=== PATIENT | male | born 1955 | race Caucasian/White ===

== ENCOUNTER 2024-03-03 19:48 | Inpatient (IN) | payer MEDICARE, OTHER, SELFPAY ==
[2024-03-03] VITALS (9 sets, daily range): BP systolic 112–150; BP diastolic 57–94; BMI 30.6; BMI 30.9
[2024-03-03] MEDS: ZITHROMAX 500 MG PO (15:10)
[2024-03-03] MEDS: DELTASONE 50 MG PO (15:10)
--- NOTE | 2024-03-03 15:10 | ED.GENMED ---
History of Present Illness
General
Chief Complaint: Cough
Source: patient and significant other
Exam Limitations: none
Time Seen by Provider: 03/03/24 14:42
Nursing documentation reviewed up to this point in time: agreed with
Travel History
Have you had any contact with someone who has COVID-19?: No
Do you have any symptoms of coronavirus? Fever > 100 degrees, chills, cough, shortness of breath, sore throat, loss of taste or smell, muscle aches, or headache?: No
History of Present Illness
History of Present Illness:
Patient is a 69-year-old male with past medical history of COPD on Symbicort, diabetes on metformin, who presents emergency department to come by his for evaluation of a worsening cough over the past 3 days. Patient reports that 4 days ago, he
was seen at an outside emergency department following a mechanical fall. At that time, the patient sustained head injury and had a CT scan of his head which was reportedly negative. Patient had a laceration to his right eyebrow which was repaired.
Patient reports that the following morning, he woke up with a cough. Patient reports that cough has been productive of clear mucus. Patient reports some mild occasional shortness of breath. Patient denies chest pain, abdominal pain, nausea,
vomiting. Patient denies any hemoptysis or lower extremity edema. Patient denies he is never been hospitalized for his COPD. Patient reports that he cannot recall the last time he was on steroids. He reports that he does have a nebulizer machine
at home but has not had to use it and has not used it since he started coughing. Patient denies any known sick contacts or travel. Patient denies any fevers or chills.
Past History
Past History
ED Past Medical History: COPD, NIDDM and Other (hep C, kidney stones)
ED Past Surgical History: Appendectomy, Cholecystectomy and Urological (cystoscopy)
Social History
Tobacco: Other (cigar smoker, former cigarette smoker)
Personal:
Living: other
Employment: Retired
Family History
Family History: Other
Review of Systems
Review of Systems
Allergies reviewed?: Yes
All Other Systems: ROS reviewed and negative except as documented in HPI and ROS
Constitutional: Reports no symptoms
EENT: Reports no symptoms
Respiratory: Reports cough and trouble breathing; Denies hemoptysis
Cardiac: Reports no symptoms
ABD/GI: Reports no symptoms
: Reports no symptoms
Musculoskeletal: Reports no symptoms
Skin: Reports no symptoms
Neurological: Reports no symptoms
Endocrine: Reports no symptoms
Hematologic/Lymphatic: Reports no symptoms
Psychiatric: Reports no symptoms
Phy Exam
General Physical Exam
General Presentation: well appearing and no apparent distress
General Skin: warm and dry
General Habitus: normal
General Mental: alert
General Hydration: appears well hydrated
ENT Exam
ENT Exam: EOMI, pharynx normal, neck supple and normocephalic
Eye Exam
Eye Exam: PERRL, cornea clear and conjunctiva normal
Cardiovascular Exam
Cardiovascular Exam: regular rate/rhythm, no edema, no murmur and normal peripheral pulses
Pulmonary Exam
Pulmonary Exam: no respiratory distress, no rales, no crackles, no rhonchi and no stridor
Cough: coarse cough
Breath Sounds: Wheeze: generalized
Gastrointestinal Exam
Gastrointestinal Exam: normal bowel sounds, non tender, soft, no organomegaly, no pulsatile mass and non distended
Neurological Exam
Neurological Exam: alert, oriented x3, no motor deficits and speech normal
Musculoskeletal Exam
Musculoskeletal Exam: full ROM and no edema
Skin Exam
Skin Exam: normal color, warm/dry, no rash and no petechia
Psychiatric Exam
Psychiatric Exam: normal mood/affect
Course
Orders/Labs/Results
Orders:
Orders
03/03/24 13:07
Chest [CR Chest - 2 Views ] Urgent
Comment:
Reason For Exam: worsening cough
03/03/24 15:03
Azithromycin [Zithromax] 500 mg PO NOW STA
Prednisone [Deltasone] 50 mg PO NOW STA
03/03/24 15:05
Ipratropium/Albuterol Sulfate [Duoneb] 3 ml INH R Q1HPRN PRN
03/03/24 16:30
Ipratropium/Albuterol Sulfate [Duoneb] 3 ml INH R NOW STA
03/03/24 16:33
COVID-19 Antigen Urgent
Source: Nasal Swab
Influenza A+B Rapid Molecular Urgent
YASMINE Source: Nasal Swab
Specimen Description:
03/03/24 18:25
Basic Metabolic Panel Urgent
Complete Blood Count/With Diff Urgent
Abnormal Lab Results
03/03/24
18:25
WBC 4.6 L 10^3/uL
(4.8-10.8)
Absolute Lymphs (auto) 0.4 L 10^3/uL
(1.2-3.4)
Neutrophils % 83.4 H %
(42.2-75.2)
Lymphocytes % 9.3 L %
(20.5-51.1)
03/03/24 18:25
Vital Signs
Initial and Last Documented VS:
Initial Vital Signs
Temp Pulse Resp BP Pulse Ox
99.8 F 96 18 122/79 94
03/03/24 13:04 03/03/24 13:04 03/03/24 13:04 03/03/24 13:04 03/03/24 13:04
Last Documented Vital Signs
Temp Pulse Resp BP Pulse Ox
99.8 F 95 19 119/57 93
03/03/24 13:04 03/03/24 18:30 03/03/24 18:30 03/03/24 18:00 03/03/24 18:30
*Critical Care Note
Total Time (30-74mins, 75-104mins- exclusive of procedures): Not Applicable
Update Note
Update Note:
Patient is a 69-year-old male with past medical history of COPD who presents to the emergency department for evaluation of worsening cough over the past 2 days. On an unrelated note, the patient did sustain a mechanical fall 3 days ago and was seen
at an outside emergency department and had a negative workup although he had a laceration sutured over his right eyebrow. Patient denies fevers or chills. Patient does endorse some intermittent shortness of breath, denies chest pain, abdominal
pain, vomiting, lower extremity edema. On arrival, patient vital signs are stable, he is afebrile. On exam, patient is well-appearing and in no acute distress although he does have bouts of severe bronchospastic cough with diffuse wheezing
throughout all lung gaspar. Patient had a chest x-ray while he was in the waiting room which demonstrates no acute disease process, no evidence of pneumonia. Initial plan was to treat the patient for a COPD exacerbation with oral steroids,
DuoNebs, oral antibiotics. On reevaluation, patient reports no significant improvement in his symptoms although his wheeze seems to have improved. Patient given an additional DuoNeb but still with frequent bronchospastic cough. Patient's
oxygenation also noted to drop as low as 86% during some of these episodes. A viral swab was sent and the patient is positive for influenza A. At this time, feel the patient requires admission for continued treatment of his COPD exacerbation
likely triggered by his influenza infection. Plan was discussed with the patient and his who expressed understanding of the plan and agreed. Patient signed out to the hospitalist without complication.
ED Attending Note
-
Portions of this chart may have been created with voice recognition software.� Occasional wrong word or��sound alike� substitutions may have occurred due to the inherent limitations of voice recognition software.
Discharge Plan
Departure
Patient Disposition: Admit
Date of Disposition: 03/03/24
Time of Disposition: 18:15
Presentation/result/management discussed w/ accepting MD/DO: Hospitalist
Patient with high blood pressure during this ER visit?: No
Condition: Good
Covid-19: Negative COVID-19
Discharge Problem:
COPD exacerbation, Influenza A
Prescriptions:
No Action
multivitamin with folic acid [Tab-A-Ewa] 1 TABLET tablet
1 tab PO DAILY
metformin 500 mg tablet extended release 24 hr
1,000 mg PO BID
lisinopril 2.5 mg tablet
2.5 mg PO DAILY
rosuvastatin 20 mg tablet
20 mg PO DAILY
budesonide-formoterol [Breyna] 160-4.5 mcg/actuation HFA aerosol inhaler
2 puff INHALATION R BID
Referrals:
Shannan Winkler CRNP [Family Provider] -
Interventions
Interventions:
*Risk Screen - Suicide Last Done: 03/03/24 13:04
*General Assessment Last Done: 03/03/24 13:04
*Neglect/Abuse Screening Last Done: 03/03/24 13:04
ED- Fall Risk Assessment Last Done: 03/03/24 14:29
*ED COVID-19 Vaccine History Last Done: 03/03/24 14:29
ED- Pulmonary Assessment Last Done: 03/03/24 14:29
Discharge Date and Time
Print Language: CZECH
[2024-03-03] MEDS: DUONEB 3 ML INH ×3 (15:22→21:57)
[2024-03-03 16:58] LABS: COVID-19 Antigen Negative (Negative)
[2024-03-03 18:35] LABS: % Basophils 1.1 % (0-2); % Eosinophils 0.6 % (0-6); % Immature Granulocytes 0.2 % (0-0.5); % Lymphocytes 9.3 % (20.5-51.1); % Monocytes 5.4 % (1.7-9.3); % Neutrophils 83.4 % (42.2-75.2); Absolute Basophils 0.1 10^3/uL (0-0.2); Absolute Lymphocytes 0.4 10^3/uL (1.2-3.4); Absolute Monocytes 0.3 10^3/uL (0.1-0.6); Absolute Neutrophils 3.9 10^3/uL (1.4-6.5); Hematocrit 40.3 % (39.0-52.0); Mean Corp Hgb Conc. 34.7 g/dL (33.0-37.0); Mean Corpuscular Hgb 29.6 pg (27.0-31.0); Mean Corpuscular Volume 85.2 fL (80.0-94.0); Mean Platelet Volume 9.1 fL (7.4-10.4); Nucleated Red Blood Cells % 0 % (-); Platelet Count 184 10^3/uL (130-400); Red Blood Cell Count 4.73 10^6/uL (4.70-6.10); Red Cell Dist. Width 12.8 % (11.5-14.5); White Blood Cell Count 4.6 10^3/uL (4.8-10.8)
[2024-03-03 18:54] LABS: Blood Urea Nitrogen 16 mg/dl (9-20); Calcium 8.7 mg/dl (8.4-10.2); Carbon Dioxide 26 mmol/L (22-30); Chloride 103 mmol/L (98-107); Estimated Creatinine Clearance 93 ml/min; Glucose 260 mg/dl (70-99); Potassium 4.2 mmol/L (3.5-5.1); Sodium 137 mmol/L (135-145); eGFR > 60.00
--- NOTE | 2024-03-03 18:54 | HPS.HSE ---
Family Physician
-
Family Physician: Shannan Winkler
Chief Complaint
-
Cough
History of Present Illness
The patient is a 69 year-old male with past medical history of COPD on Symbicort and diabetes on metformin, who presents to the ED due to worsening cough, productive clear sputum, and dyspnea. Seen at outside ED 4 days ago after a mechanical fall,
with negative head CT/negative spine x-rays/laceration right eyebrow that was repaired at that time. No Fever, no CP, no abdominal pain, no n/v, no hemoptysis. No recent travel, no known sick contacts, though he mentions he shoots pool several times
a week with a group. WBC 4.6. O2 drops to 86% during coughing spells. Influenza A positive.
ED txt:
Zithromax, Prednisone 50 mg, Duo-Neb
Medical History
Past Medical History
Past Medical History: Reports COPD, NIDDM and Other (Hepatitis C, kidney stones)
Past Surgical History: Reports Appendectomy, Cholecystectomy and Other (Cystoscopy)
Social History
Tobacco: Other (cigars)
Personal:
Family History
Family History: Not pertinent
Allergies / Home Medications
Allergies reflects when Allergies were last updated in [facility].
Home Medications with original date entered in [facility]
Allergy/Medication List:
Allergies
Allergy/AdvReac Type Severity Reaction Status Date / Time
No Known Allergies Allergy Verified 03/13/23 14:25
Home Medications
multivitamin with folic acid 400 mcg tablet (Tab-A-Ewa) 1 tab PO DAILY Supplement 06/01/16
budesonide-formoterol HFA 160 mcg-4.5 mcg/actuation aerosol inhaler (Breyna) 2 puff inhalation R BID 03/03/24
lisinopril 2.5 mg tablet 2.5 mg PO DAILY 03/03/24
metformin 500 mg tablet,extended release 24 hr 1,000 mg PO BID 03/03/24
rosuvastatin 20 mg tablet 20 mg PO DAILY 03/03/24
Review of Systems
-
A 12 point ROS was completed and negative except as noted: Yes
Physical Exam
Vital Signs
Vital Signs
Temp Pulse Resp BP Pulse Ox
99.8 F 95 19 119/57 93
03/03/24 13:04 03/03/24 18:30 03/03/24 18:30 03/03/24 18:00 03/03/24 18:30
Physical Exam
General: Well Developed, Well Nourished, No Apparent Distress and Other (coughing with lung exam)
HEENT: NormoCephalic, Anicteric and Moist mucous membranes
Respiratory: Wheezes (RLL expiratory )
Cardiac: S1/S2 and Regular Rhythm
GI: Soft, Non Tender and Non Distended
Musculoskeletal: No Clubbing, No Cyanosis and No Edema
Skin: Warm and Dry
Neuro: AO x 3, No Motor Deficits and Nonfocal/grossly intact
Psych: Calm
Laboratory Results
-
03/03/24 18:25
Data Reviewed
-
Diagnostic Radiology: Image Personally Visualized and interpreted and Report Reviewed by me (CXR no acute pulmonary process)
Impression/Plan
-
IMPRESSION:
The patient is a 69 year-old male with past medical history of COPD on Symbicort and diabetes on metformin, who presents to the ED due to worsening cough, productive clear sputum, and dyspnea. Seen at outside ED 4 days ago after a mechanical fall,
with negative head CT/negative spine x-rays/laceration right eyebrow that was repaired at that time.
WBC 4.6. O2 drops to 86% during coughing spells. Influenza A positive.
ED txt:
Zithromax, Prednisone 50 mg, Duo-Neb
# Influenza A viral syndrome associated with acute hypoxic respiratory failure (not on home oxygen), requiring 2L here due to hypoxia 86% that was persistent despite ED treatment
#COPD exacerbation
-IV Azithromycin daily for now
-Duo-Nebs scheduled and prn
-Prednisone 40 mg daily and wean
-O2 per nasal cannula with weaning parameters
-Robitussin with codeine once now and prn cough
-Tamiflu 75 mg PO BID
#NIDDM
-cont Metformin
-check HgA1C
-SSI
-JARAD-I
#HLD
-rosuvastatin
DVT proph Lovenox
Full Code
[2024-03-03] MEDS: TAMIFLU 75 MG PO (19:39)
[2024-03-03] MEDS: ROBITUSSIN AC 10 ML PO ×2 (19:39→22:26)
--- NOTE | 2024-03-03 21:00 | PTCARENOTE ---
Received patient from ED. Patient AAOx3, ambulated to the bedside with minimal assist. Patient on 2L NC POX 94. Lungs decreased, HAYS, heart rate reg, no edema, positive pulses. Recent fall with laceration over right eyebrow with 11 stitches and
bruised occipital socket and bruised right thumb. Patient verbalized an understanding to ring for all transfers. VSS. Bed alarm placed for safety. Patient oriented to the unit. Call matos in reach.
[2024-03-03] MEDS: NSS 1000 IV (21:36)
[2024-03-03 21:42] LABS: Glucose - Point of Care 295 mg/dl (70-99)
[2024-03-03] MEDS: GLUCOPHAGE XR EXTENDED RELEASE 1000 MG PO (21:42)
[2024-03-03] MEDS: SYMBICORT 160/4.5 MCG INHALER 2 PUFF INH (21:57)
[2024-03-04 00:31] VITALS: BP 112/63
[2024-03-04] MEDS: ROBITUSSIN AC 10 ML PO ×4 (04:27→20:17)
[2024-03-04 07:07] LABS: Hematocrit 40.8 % (39.0-52.0); Hemoglobin 13.6 g/dL (13.0-18.0); Mean Corp Hgb Conc. 33.3 g/dL (33.0-37.0); Mean Corpuscular Hgb 29.8 pg (27.0-31.0); Mean Corpuscular Volume 89.3 fL (80.0-94.0); Mean Platelet Volume 9.3 fL (7.4-10.4); Platelet Count 177 10^3/uL (130-400); Red Blood Cell Count 4.57 10^6/uL (4.70-6.10); Red Cell Dist. Width 12.7 % (11.5-14.5); White Blood Cell Count 5.4 10^3/uL (4.8-10.8)
[2024-03-04 07:22] LABS: Glucose - Point of Care 107 mg/dl (70-99)
[2024-03-04] MEDS: DUONEB 3 ML INH ×4 (07:24→19:21)
[2024-03-04] MEDS: SYMBICORT 160/4.5 MCG INHALER 2 PUFF INH ×2 (07:25→19:21)
[2024-03-04] MEDS: NOVOLOG FLEXPEN-LOW RESISTANCE SC (07:26)
[2024-03-04 07:32] LABS: Blood Urea Nitrogen 14 mg/dl (9-20); Calcium 8.6 mg/dl (8.4-10.2); Carbon Dioxide 31 mmol/L (22-30); Chloride 107 mmol/L (98-107); Estimated Creatinine Clearance 109 ml/min; Glucose 120 mg/dl (70-99); Potassium 5.9 mmol/L (3.5-5.1); Sodium 142 mmol/L (135-145); eGFR > 60.00
[2024-03-04 07:45] VITALS: BP 118/71
[2024-03-04] MEDS: GLUCOPHAGE XR EXTENDED RELEASE 1000 MG PO ×2 (08:08→20:11)
[2024-03-04] MEDS: TAMIFLU 75 MG PO ×2 (08:08→20:10)
[2024-03-04] MEDS: CRESTOR 20 MG PO (08:09)
[2024-03-04] MEDS: DELTASONE 40 MG PO (08:09)
[2024-03-04] MEDS: ZESTRIL 2.5 MG PO (08:09)
[2024-03-04 08:57] LABS: Absolute Neutrophils -Man Diff 3.1 10^3/uL (1.4-6.5); Band Neutrophils 4 % (0-3); Lymphocytes 27 % (20-51); Monocytes 14 % (2-9); Segmented Neutrophils 55 % (42-75)
[2024-03-04 09:04] LABS: Normal RBC Morphology Yes; Platelets Checked YES
[2024-03-04 09:05] LABS: Total Cells Counted 100
--- NOTE | 2024-03-04 09:38 | W.PN.HOSP.TC ---
Today's Communication/Plan
-
.
Assessment / Plan
Assessment / Plan
Physical Exam
General: Well Developed, Well Nourished, No Apparent Distress.
HEENT: Normocephalic, Anicteric and Moist mucous membranes
Respiratory: B/L rhonchi
Cardiac: S1/S2
GI: Soft, Non Tender and Non Distended
Musculoskeletal: No Clubbing, No Cyanosis and No Edema
Skin: Warm and Dry
Neuro: AO x 3, No Motor Deficits and Nonfocal/grossly intact
Psych: Calm, pleasant
69 year-old male presented to the ED due to worsening cough, productive clear sputum, and dyspnea. Seen at outside ED 4 days ago after a mechanical fall, with negative head CT/negative spine x-rays/laceration right eyebrow that was repaired at that
time.
# Acute hypoxic respiratory failure with hypoxia, distress and sob
Known COPD, sees Dr Alfredo.
Resolving
Wean off O2 as tolerated.
# Influenza A viral bronchitis
-IV Azithromycin daily for now
-Duo-Nebs scheduled and prn
-Prednisone 40 mg daily and wean
-O2 per nasal cannula with weaning parameters
-Robitussin with codeine once now and prn cough
-Tamiflu 75 mg PO BID
-Appreciate pulmonary help
# Hyperkalemia,
Hold Lisinopril
Give one time high dose Lokelma
Repeat K later today
#NIDDM
-Expect high blood glucose due to steroid use and infection. Add Lantus
-cont Metformin
-check HgA1C
-SSI
#HLD
-rosuvastatin
DVT proph Lovenox
Full Code
Total time spent to see the patient, examine the patient on the floor, review data and lab results, discuss treatment plan with patient, nursing staff around 55 minutes
Anticipated Discharge: 24 - 48 hours
Subjective/Interval History
-
Date of Service: March 04, 2024
No chest pain
Less cough
Objective Data
-
Labs:
Laboratory Results
03/04/24
06:54
WBC 5.4
Hgb 13.6
Hct 40.8
Plt Count 177
Sodium 142
Potassium 5.9 H D
Chloride 107
Carbon Dioxide 31 H
BUN 14
Creatinine 0.6 L
Glucose 120 H
Calcium 8.6
Vital Signs:
Vital Signs
Temp Pulse Resp BP Pulse Ox
98.6 F 84 16 118/71 94
03/04/24 07:45 03/04/24 08:09 03/04/24 07:45 03/04/24 08:09 03/04/24 07:45
I&O
03/03/24 03/04/24 03/05/24
06:59 06:59 06:59
Intake Total 480 / 480
Balance 480 / 480
[2024-03-04 10:17] LABS: Glycohemoglobin (HgbA1c) 6.6 % (4.0-5.6)
[2024-03-04] MEDS: LOKELMA 10 GRAM PO (10:23)
[2024-03-04 11:46] LABS: Glucose - Point of Care 200 mg/dl (70-99)
[2024-03-04] MEDS: ZITHROMAX INFUSION 250 IV (11:46)
[2024-03-04 12:10] LABS: Potassium 4.8 mmol/L (3.5-5.1)
[2024-03-04] MEDS: NOVOLOG FLEXPEN-LOW RESISTANCE 2 UNITS SC (12:39)
--- NOTE | 2024-03-04 13:19 | CON.PUL ---
Consultation
Consultation Request
Date/Time Consultation Requested: 03/04/2024
Date/Time Consultation Performed: 03/04/2024
Requesting Provider: Dr. Patiño
Performing Provider: Dr. Mesfin Loera
Reason for Consultation: Acute COPD exacerbation
Medical History
-
History of Present Illness:
69-year-old man with past medical history significant for COPD on Symbicort in the outpatient setting, diabetes type 2 who presented to the emergency room with cough, productive clear sputum, worsening exertional dyspnea.
Apparently reported being seen in a different emergency room for mechanical fall and at that time he had a negative CT of the head and x-rays of the spine.
Denies any fevers, chills or hemoptysis. Denies nausea vomiting or diarrhea.
Mild oxygen saturation was noted down to 86%, patient reports cough paroxysms. Noted to have influenza A positive.
Past Medical History
Past Medical History: Other (See assessment and plan section)
Social History
Tobacco: Other (Cigars)
Alcohol: None
Personal:
Family History
Family History: Reviewed & Not Pertinent
Allergies / Home Medications
Allergies
Allergy/AdvReac Type Severity Reaction Status Date / Time
No Known Allergies Allergy Verified 03/13/23 14:25
Home Medications
�Medication �Instructions �Recorded �Confirmed �Last Taken �Type
multivitamin with folic acid 400 1 tab PO DAILY Supplement 06/01/16 03/03/24 03/03/24 History
mcg tablet (Tab-A-Ewa)
budesonide-formoterol HFA 160 2 puff inhalation R BID 03/03/24 03/03/24 03/03/24 History
mcg-4.5 mcg/actuation aerosol
inhaler (Breyna)
lisinopril 2.5 mg tablet 2.5 mg PO DAILY 03/03/24 03/03/24 03/03/24 History
metformin 500 mg tablet,extended 1,000 mg PO BID 03/03/24 03/03/24 03/03/24 History
release 24 hr
rosuvastatin 20 mg tablet 20 mg PO DAILY 03/03/24 03/03/24 03/03/24 History
Review of Systems
-
History Source: Patient
All other systems: Negative unless noted
Vitals / Labs / Diagnostic Testing
Vital Signs
Temp Pulse Resp BP Pulse Ox
98.6 F 84 16 118/71 95
03/04/24 07:45 03/04/24 08:09 03/04/24 11:48 03/04/24 08:09 03/04/24 11:48
Lab Data
03/04/24 06:54
03/04/24 11:45
Microbiology
03/03/24 16:33 Nasal Swab Influenza Types A & B (LILIYA) - Final
Influenza A Positive, NAAT
Diagnostic Testing:
Physical Exam
-
HEENT: Normocephalic
Cardiovascular: S1/S2
Respiratory: Wheeze (minimal expiratory) and Other (good air movement)
GI: Soft and Non Distended
Neurology: Awake and Oriented
Skin: Warm
General: Respiratory Distress (n)
Assessment
-
69-year-old male with history of COPD on Symbicort, admitted with cough, shortness of breath, mild hypoxemia. Found to be positive for influenza A.
Acute exacerbation of COPD triggered by influenza A infection
Chest x-ray showed no radiographic evidence for pneumonia. Mild amount of subsegmental atelectasis in both lungs.
Negative COVID
Positive influenza A infection
Assessment and plan:
History of COPD-on Symbicort. Follows up with Dr. Alfredo
Recent low-dose radiation CAT 09/01/2023 scan without pulmonary nodules. Minimal bronchiectasis of the left lower lobe.
Type 2 diabetes
Hyperlipidemia
Assessment and plan:
I agree with current management
Oral prednisone
Nebulizers with DuoNebs
Continue Symbicort
IV azithromycin for today and transition to oral tomorrow complete 5 days
Tamiflu x5d
Oxygen supplementation: Currently at 1 L. Hopeful to wean off. Not on oxygen in the outpatient setting.
Mucolytic's
Antitussives: Guaifenesin/codeine as needed
Acapella device
-
Watch blood sugars closely with oral steroids.
Insulin sliding scale.
-
DVT prophylaxis-Lovenox
-
Will need outpatient follow-up with Dr. Alfredo after discharge.
-
Pulmonary will follow
[2024-03-04 15:19] VITALS: BMI 30.9
[2024-03-04] MEDS: LANTUS 0.149999999999999994 UNITS SC (15:19)
[2024-03-04 15:25] LABS: Glucose - Point of Care 244 mg/dl (70-99)
[2024-03-04 15:30] VITALS: BP 117/63
[2024-03-04 17:09] LABS: Glucose - Point of Care 257 mg/dl (70-99)
[2024-03-04] MEDS: LOVENOX 40 MG SC (17:23)
[2024-03-04] MEDS: NOVOLOG FLEXPEN-LOW RESISTANCE 3 UNITS SC (17:23)
[2024-03-04 21:35] LABS: Glucose - Point of Care 145 mg/dl (70-99)
[2024-03-04 23:27] VITALS: BP 123/67
[2024-03-05] MEDS: ROBITUSSIN AC 10 ML PO ×2 (01:13→22:35)
[2024-03-05] MEDS: DUONEB 3 ML INH ×4 (07:10→20:14)
[2024-03-05] MEDS: SYMBICORT 160/4.5 MCG INHALER 2 PUFF INH ×2 (07:11→20:13)
[2024-03-05 07:24] LABS: Blood Urea Nitrogen 15 mg/dl (9-20); Calcium 8.7 mg/dl (8.4-10.2); Carbon Dioxide 31 mmol/L (22-30); Chloride 105 mmol/L (98-107); Estimated Creatinine Clearance 109 ml/min; Glucose 105 mg/dl (70-99); Sodium 142 mmol/L (135-145); eGFR > 60.00
[2024-03-05 07:45] VITALS: BP 125/77
[2024-03-05] MEDS: DELTASONE 40 MG PO (08:12)
[2024-03-05] MEDS: GLUCOPHAGE XR EXTENDED RELEASE 1000 MG PO ×2 (08:12→20:46)
[2024-03-05] MEDS: CRESTOR 20 MG PO (08:12)
[2024-03-05] MEDS: TAMIFLU 75 MG PO ×2 (08:12→20:46)
[2024-03-05 08:16] LABS: Glucose - Point of Care 108 mg/dl (70-99)
[2024-03-05] MEDS: NOVOLOG FLEXPEN-LOW RESISTANCE SC (08:18)
--- NOTE | 2024-03-05 09:57 | W.PN.HOSP.TC ---
Today's Communication/Plan
-
Discharge tomorrow
Assessment / Plan
Assessment / Plan
69 year-old male presented to the ED due to worsening cough, productive clear sputum, and dyspnea. Seen at outside ED 4 days ago after a mechanical fall, with negative head CT/negative spine x-rays/laceration right eyebrow that was repaired at that
time.
# Acute hypoxic respiratory failure with hypoxia, distress and sob
Known COPD, sees Dr Alfredo.
Resolved, now satting on room air
# Influenza A viral bronchitis
-IV Azithromycin daily for now
-Duo-Nebs scheduled and prn
-Prednisone 40 mg daily and wean
-O2 per nasal cannula with weaning parameters
-Robitussin with codeine once now and prn cough
-Tamiflu 75 mg PO BID
-Appreciate pulmonary help
# Hyperkalemia,
Hold Lisinopril
S/p Lokelma
Potassium 5.0 today, was as high as 5.9
#NIDDM
-Expect high blood glucose due to steroid use and infection. Added Lantus, also add NovoLog 3 units AC 3 times daily
-cont Metformin
- HgA1C 6.6
-SSI
#HLD
-rosuvastatin
DVT proph Lovenox
Full Code
Total time spent to see the patient on the floor, examine the patient, review data and lab results, discuss treatment plan with patient, nursing staff around 35 minutes.
Physical Exam
General: Well Developed, Well Nourished, No Apparent Distress.
HEENT: Normocephalic, Anicteric and Moist mucous membranes
Respiratory: B/L rhonchi
Cardiac: S1/S2
GI: Soft, Non Tender and Non Distended
Musculoskeletal: No Clubbing, No Cyanosis and No Edema
Skin: Warm and Dry
Neuro: AO x 3, No Motor Deficits and Nonfocal/grossly intact
Psych: Calm, pleasant
Anticipated Discharge: Within 24 hours
Subjective/Interval History
-
Date of Service: March 05, 2024
Continues to cough. Denies shortness of breath at rest or with activity. No fever, no vomiting.
Objective Data
-
Labs:
Laboratory Results
03/05/24
06:03
Sodium 142
Potassium 5.0
Chloride 105
Carbon Dioxide 31 H
BUN 15
Creatinine 0.6 L
Glucose 105 H
Calcium 8.7
Vital Signs:
Vital Signs
Temp Pulse Resp BP Pulse Ox
98.4 F 94 18 125/77 92
03/05/24 07:45 03/05/24 07:45 03/05/24 07:45 03/05/24 07:45 03/05/24 07:45
I&O
03/04/24 03/05/24 03/06/24
06:59 06:59 06:59
Intake Total 480 / 480 1196 / 1196
Balance 480 / 480 1196 / 1196
--- NOTE | 2024-03-05 10:10 | W.PN.PUL.V3 ---
Today's Communication / Plan
-
Prednisone taper
Wean oxygen
Increase activity
Antitussives
Finite course of azithromycin
Outpatient pulmonary follow-up
Assessment
-
69-year-old male with history of COPD on Symbicort, admitted with cough, shortness of breath, mild hypoxemia. Found to be positive for influenza A.
Acute exacerbation of COPD triggered by influenza A infection
Chest x-ray showed no radiographic evidence for pneumonia. Mild amount of subsegmental atelectasis in both lungs.
Negative COVID
Positive influenza A infection
Assessment and plan:
History of COPD-on Symbicort. Follows up with Dr. Alfredo
Recent low-dose radiation CAT 09/01/2023 scan without pulmonary nodules. Minimal bronchiectasis of the left lower lobe.
Former smoker
Type 2 diabetes
Hyperlipidemia
Plan
Respiratory status slowly improving
Wean supplemental oxygen-not on home oxygen
Nebulizers as needed-on DuoNebs 4 times daily
Symbicort 160/4.5 continues
Prednisone 40 mg with slow taper
Incentive spirometry
Antitussives
Acapella
Cultures reviewed
Influenza positive
Tamiflu per protocol
Azithromycin-complete finite course
Monitor blood sugar
Insulin supplementation as needed
DVT prophylaxis-on Lovenox
Nutrition
Early mobilization
Outpatient pulmonary follow-up with Dr. Alfredo-last seen by Kayla Chen, DAO 11/30/2023 and has appointment to see Kayla Chen NP 03/29/2024 at 1:30 PM
Data
Chest x-ray 08/03/2022-improved aeration of the left base
Chest x-ray 10/27/2023-NAD
Chest x-ray 03/03/2024-NAD
CT [id number] 08/31/2022-no evidence for pulmonary malignancy, mild cylindrical bronchiectasis left lower lobe
CT chest low-dose 09/01/2023-no evidence for pulmonary nodules or masses, coronary artery calcifications again seen
Echocardiogram 11/22/2022-EF 60-65%, no significant valvular disease, no change since 2015
Spirometry- 11/30/2023- FVC 2.43, 74 Fev1 1.12, 63 ratio 59 18% BD response�������
PFT 03/11/23: FVC 2.70/80%, FEV1 1.59/65%, ratio 59%, no significant BD response, TLC 5.39/93%, DLCO 17.22/79%. Moderate obstruction. Mildly reduced diffusing capacity.
Subjective Data
-
Date of Service:
Date of Service: March 05, 2024
Chief Complaint: Pulmonary Follow Up and Dyspnea Follow Up
Subjective:
Feels better, less short of breath, no chest pain, chest congestion, productive cough, or abdominal pain
Review of Systems
General: Other (Per HPI)
Objective Data
Data Reviewed
Vital Signs / I&O:
Vital Signs
Temp Pulse Resp BP Pulse Ox
98.4 F 94 18 125/77 92
03/05/24 07:45 03/05/24 07:45 03/05/24 07:45 03/05/24 07:45 03/05/24 07:45
Intake and Output
03/04/24 03/05/24 03/06/24
06:59 06:59 06:59
Intake Total 480 / 480 1196 / 1196
Balance 480 / 480 1196 / 1196
SaO2: 92
Nasal Cannula flow liters per minute: 1
Physical Exam
General: Respiratory Distress (n) and Comfortable
HEENT: Normocephalic, Anicteric and Moist Mucous Membranes
Cardiovascular: Regular Rhythm
Respiratory: Wheeze (Forced expiratory), Crackles (Rare basilar), Rhonchi (n), Non-Labored Respirations, Accessory Resp Muscle Use (n) and Stridor (n)
GI: Soft, Non Distended and Non Tender
Neurology: Awake, Alert and No Motor Deficits
Skin: Warm, Good Color, Cyanosis (n), Jaundice (n) and Rash (n)
Labs/Micro/Reports
Lab Data
03/04/24 06:54
03/05/24 06:03
Microbiology
03/03/24 16:33 Nasal Swab Influenza Types A & B (LILIYA) - Final
Influenza A Positive, NAAT
[2024-03-05 11:35] LABS: Glucose - Point of Care 212 mg/dl (70-99)
[2024-03-05] MEDS: ZITHROMAX INFUSION 250 IV (12:14)
[2024-03-05] MEDS: NOVOLOG FLEXPEN-LOW RESISTANCE 2 UNITS SC (13:00)
[2024-03-05 16:32] VITALS: BP 135/73
[2024-03-05 17:23] LABS: Glucose - Point of Care 172 mg/dl (70-99)
[2024-03-05] MEDS: NOVOLOG FLEXPEN 3 UNITS SC (17:23)
[2024-03-05] MEDS: NOVOLOG FLEXPEN-LOW RESISTANCE 1 UNITS SC (17:23)
[2024-03-05] MEDS: LOVENOX 40 MG SC (17:24)
--- NOTE | 2024-03-05 17:43 | PTCARENOTE ---
pt amlodipine held due to high potassium. pt educated and made aware. pt allowed to shower per MD. pt receiving IV abx and per MD and patient will likely leave tomorrow on PO abx and tamiflu. pt states his is also at home sick so he wanted an
extra day to make sure he was good enough to take care of her at home.
[2024-03-05 21:19] LABS: Glucose - Point of Care 147 mg/dl (70-99)
[2024-03-05 23:33] VITALS: BP 118/72
[2024-03-06 07:00] VITALS: BP 114/72
[2024-03-06] MEDS: SYMBICORT 160/4.5 MCG INHALER 2 PUFF INH (07:11)
[2024-03-06] MEDS: DUONEB 3 ML INH ×2 (07:11→11:20)
[2024-03-06 08:21] LABS: Glucose - Point of Care 120 mg/dl (70-99)
[2024-03-06] MEDS: NOVOLOG FLEXPEN-LOW RESISTANCE SC (08:26)
[2024-03-06] MEDS: DELTASONE 40 MG PO (08:39)
[2024-03-06] MEDS: GLUCOPHAGE XR EXTENDED RELEASE 1000 MG PO (08:39)
[2024-03-06] MEDS: CRESTOR 20 MG PO (08:39)
[2024-03-06] MEDS: TAMIFLU 75 MG PO (08:40)
[2024-03-06] MEDS: NOVOLOG FLEXPEN 3 UNITS SC ×2 (08:40→12:07)
--- NOTE | 2024-03-06 09:13 | W.PN.HOSP.TC ---
Today's Communication/Plan
-
Discharge today
Assessment / Plan
Assessment / Plan
69 year-old male presented to the ED due to worsening cough, productive clear sputum, and dyspnea. Seen at outside ED 4 days ago after a mechanical fall, with negative head CT/negative spine x-rays/laceration right eyebrow that was repaired at that
time.
# Acute hypoxic respiratory insufficiency, failure ruled out
Known COPD, sees Dr Alfredo.
Resolved, now satting on room air
# Influenza A viral bronchitis
-IV Azithromycin daily for now
-Duo-Nebs scheduled and prn
-Prednisone 40 mg daily and wean
-O2 per nasal cannula with weaning parameters
-Robitussin with codeine once now and prn cough
-Tamiflu 75 mg PO BID
-Medically stable for discharge on burst course of prednisone, Tamiflu, follow-up pulmonology in the office
# Hyperkalemia,
S/p Lokelma
Potassium 5.0 yesterday, was as high as 5.9
Resume Lisinopril
#NIDDM
-Expect high blood glucose due to steroid use and infection. Added Lantus, also added NovoLog 3 units AC 3 times daily
-cont Metformin
- HgA1C 6.6
-SSI
#HLD
-rosuvastatin
DVT proph Lovenox
Full Code
Physical Exam
General: Well Developed, Well Nourished, No Apparent Distress.
HEENT: Normocephalic, Anicteric and Moist mucous membranes
Respiratory: B/L rhonchi
Cardiac: S1/S2
GI: Soft, Non Tender and Non Distended
Musculoskeletal: No Clubbing, No Cyanosis and No Edema
Skin: Warm and Dry
Neuro: AO x 3, No Motor Deficits and Nonfocal/grossly intact
Psych: Calm, pleasant
Anticipated Discharge: Today
Subjective/Interval History
-
Date of Service: March 06, 2024
Shortness of breath resolved. Continues to have intermittent coughing fits. No fever, no vomiting.
Objective Data
-
Vital Signs:
Vital Signs
Temp Pulse Resp BP Pulse Ox
98.0 F 76 17 114/72 94
03/06/24 07:00 03/06/24 07:16 03/06/24 07:16 03/06/24 07:00 03/06/24 07:16
I&O
03/05/24 03/06/24 03/07/24
06:59 06:59 06:59
Intake Total 1196 / 1196 1770 / 1770
Balance 1196 / 1196 1770 / 1770
--- NOTE | 2024-03-06 09:40 | W.PN.PUL.V3 ---
Today's Communication / Plan
-
Wean oxygen
Increase activity
Assess discharge supplemental oxygen needs
Continue Symbicort
Finite course of Tamiflu
Prednisone taper
Stable for discharge from a pulmonary perspective
Assessment
-
69-year-old male with history of COPD on Symbicort, admitted with cough, shortness of breath, mild hypoxemia. Found to be positive for influenza A.
Acute exacerbation of COPD triggered by influenza A infection
Chest x-ray showed no radiographic evidence for pneumonia. Mild amount of subsegmental atelectasis in both lungs.
Negative COVID
Positive influenza A infection
Assessment and plan:
History of COPD-on Symbicort. Follows up with Dr. Alfredo
Recent low-dose radiation CAT 09/01/2023 scan without pulmonary nodules. Minimal bronchiectasis of the left lower lobe.
Former smoker
Type 2 diabetes
Hyperlipidemia
Plan
He continues to improve from a pulmonary perspective
Wean supplemental oxygen-not on home oxygen
Nebulizers as needed-on DuoNebs 4 times daily
Symbicort 160/4.5 continues
Patient changed to prednisone with slow taper
Incentive spirometry
Antitussives
Acapella
Cultures reviewed
Influenza positive
Tamiflu per protocol
Azithromycin-complete finite course
Monitor blood sugar
Insulin supplementation as needed
DVT prophylaxis-on Lovenox
Nutrition
Early mobilization
Patient stable from a pulmonary perspective for discharge
Outpatient pulmonary follow-up with Dr. Alfredo-last seen by Kayla Chen NP 11/30/2023 and has appointment to see Kayla Chen NP 03/29/2024 at 1:30 PM
Data
Chest x-ray 08/03/2022-improved aeration of the left base
Chest x-ray 10/27/2023-NAD
Chest x-ray 03/03/2024-NAD
CT [id number] 08/31/2022-no evidence for pulmonary malignancy, mild cylindrical bronchiectasis left lower lobe
CT chest low-dose 09/01/2023-no evidence for pulmonary nodules or masses, coronary artery calcifications again seen
Echocardiogram 11/22/2022-EF 60-65%, no significant valvular disease, no change since 2015
Spirometry- 11/30/2023- FVC 2.43, 74 Fev1 1.12, 63 ratio 59 18% BD response�������
PFT 03/11/23: FVC 2.70/80%, FEV1 1.59/65%, ratio 59%, no significant BD response, TLC 5.39/93%, DLCO 17.22/79%. Moderate obstruction. Mildly reduced diffusing capacity.
Subjective Data
-
Date of Service:
Date of Service: March 06, 2024
Chief Complaint: Pulmonary Follow Up and Dyspnea Follow Up
Subjective:
Feels much improved, less shortness of breath, cough improved, wheezing improved, no abdominal pain
Review of Systems
General: Other (Per HPI)
Objective Data
Data Reviewed
Vital Signs / I&O:
Vital Signs
Temp Pulse Resp BP Pulse Ox
98.0 F 76 17 114/72 94
03/06/24 07:00 03/06/24 07:16 03/06/24 07:16 03/06/24 07:00 03/06/24 07:16
Intake and Output
03/05/24 03/06/24 03/07/24
06:59 06:59 06:59
Intake Total 1196 / 1196 1770 / 1770
Balance 1196 / 1196 1770 / 1770
SaO2: 94
Nasal Cannula flow liters per minute: 2
Physical Exam
General: Respiratory Distress (n) and Comfortable
HEENT: Normocephalic, Anicteric and Moist Mucous Membranes
Cardiovascular: Regular Rhythm
Respiratory: Wheeze (Forced expiratory), Crackles (Rare basilar), Rhonchi (n), Non-Labored Respirations, Accessory Resp Muscle Use (n) and Stridor (n)
GI: Soft, Non Distended and Non Tender
Neurology: Awake, Alert and No Motor Deficits
Skin: Warm, Good Color, Cyanosis (n), Jaundice (n) and Rash (n)
Labs/Micro/Reports
Lab Data
03/04/24 06:54
03/05/24 06:03
Microbiology
03/03/24 16:33 Nasal Swab Influenza Types A & B (LILIYA) - Final
Influenza A Positive, NAAT
[2024-03-06] MEDS: ZESTRIL 2.5 MG PO (09:45)
[2024-03-06] MEDS: ZITHROMAX INFUSION 250 IV (11:06)
[2024-03-06 11:50] LABS: Glucose - Point of Care 226 mg/dl (70-99)
[2024-03-06] MEDS: NOVOLOG FLEXPEN-LOW RESISTANCE 2 UNITS SC (12:06)
--- NOTE | 2024-03-06 12:18 | W.DCSUMMARY ---
Discharge Summary
Discharge Data
Date of Admission: 03/03/24
Date of Discharge: 03/06/24
-
Pending Results: No
Hospital Course
Discharge diagnoses:
Acute hypoxic respiratory insufficiency
Acute influenza A viral bronchitis
Acute on chronic obstructive pulmonary disease exacerbation
Hyperkalemia
Qqf-xgnandb-pbyehjmbp type 2 diabetes with hyperglycemia from steroids
Hyperlipidemia
Consults: Pulmonology
Chest x-ray:
1. No radiographic evidence for pneumonia, acute pulmonary edema, or pleural effusion.
2. Mild amount of scarring/subsegmental atelectasis in both lower lungs.
Hospital course:
69-year-old male with a past medical history of COPD, diabetes, and obesity who was admitted for acute COPD exacerbation and respiratory insufficiency secondary to acute influenza A viral bronchitis. Patient was seen in conjunction with
pulmonology, he is known to Dr. Alfredo. He was treated with oral prednisone, Tamiflu, IV azithromycin, and bronchodilators. Chest x-ray was negative for pneumonia. He did have hypoxia with his coughing spells.
After several days, his shortness of breath resolved. He did continue to cough. He was counseled that his cough will linger secondary to his COPD. He was satting 95% on room air. He is medically stable for discharge to complete a burst course of
prednisone, as well as to complete 5 days of Tamiflu. He needs to follow-up with his primary care doctor in 1 week, as well as his usual mason helper in the office in 2-3 weeks.
Disposition: Home self-care
Discharge planning: Required 35-minute
Discharge Plan
-
Patient Disposition: Home (Routine Discharge)
Discharge Diagnosis/Procedures: Acute hypoxia, influenza A viral bronchitis, chronic obstructive pulmonary disease, hyperkalemia, type 2 diabetes
Condition: Fair
Diet: Diabetic, Carb Controlled
Activity: As tolerated
Driving Restrictions: As prior to admission
Referrals:
Debbie Alfredo MD [Active] - in two to three weeks (May see NIKKI)
Shannan Winkler CRNP [Family Provider] - in one week
Prescriptions:
New
prednisone 20 mg Tablet
40 mg PO DAILY 4 Days Qty: 8 0RF
oseltamivir 75 mg Capsule
75 mg PO BID 2 Days Qty: 4 0RF
codeine-guaifenesin 10-100 mg/5 mL Liquid
10 ml PO Q4HPRN PRN (Reason: cough) Qty: 200 0RF
Continued
multivitamin with folic acid [Tab-A-Ewa] 1 TABLET tablet
1 tab PO DAILY
metformin 500 mg tablet extended release 24 hr
1,000 mg PO BID
lisinopril 2.5 mg tablet
2.5 mg PO DAILY
rosuvastatin 20 mg tablet
20 mg PO DAILY
budesonide-formoterol [Breyna] 160-4.5 mcg/actuation HFA aerosol inhaler
2 puff INHALATION R BID
Discharge Orders:
Discharge Patient (As Directed); Ordered 03/06/24
Ordered By: Fernando Gutierrez
Discharge Date and Time
Discharge Date/Time: 03/06/24 15:10
Print Language: UZBEK
--- NOTE | 2024-03-06 14:04 | CM ---
CM met with pt bedside
Pt resides with his spouse in a split level home
2STE and approx 9 up to sleeping area
Pt is independent and denies use of DMEs
Discharge order noted
Dr Gutierrez confirms no need for home O2 on dc
No dc needs noted
IMM verbally reviewed- copy provided
Discharge Disposition- home, no needs
[2024-03-06] MEDS: ROBITUSSIN AC 10 ML PO (14:21)
[2024-03-06 14:43] VITALS: BP 140/79
== END 2024-03-06 15:10 | disposition home or self-care (01) | DRG 194 ==
LOC: 2 NORTH 19:48
PROVIDERS: Internal Medicine; Physician Assistant Medical; ADMITTING PHYSICIAN Internal Medicine; ATTENDING PHYSICIAN Family Medicine; EMERGENCY PHYSICIAN Emergency Medicine; FAMILY PHYSICIAN Nurse Practitioner Adult Health; OTHER PHYSICIAN Internal Medicine Critical Care Medicine
DX: J10.1 Influenza due to other identified influenza virus with other respiratory manifestations (principal); J44.1 Chronic obstructive pulmonary disease with (acute) exacerbation; J98.11 Atelectasis; E78.5 Hyperlipidemia, unspecified; R06.89 Other abnormalities of breathing; E66.9 Obesity, unspecified; R09.02 Hypoxemia; E87.5 Hyperkalemia; F17.290 Nicotine dependence, other tobacco product, uncomplicated; E11.65 Type 2 diabetes mellitus with hyperglycemia; Z79.51 Long term (current) use of inhaled steroids; Z87.442 Personal history of urinary calculi; Z11.52 Encounter for screening for COVID-19; Z79.84 Long term (current) use of oral hypoglycemic drugs; Z90.49 Acquired absence of other specified parts of digestive tract; Z68.30 Body mass index [BMI] 30.0-30.9, adult
CPT/HCPCS: 71046; 80048; 82962; 83036; 84132; 85025; 87502; 87811; 94640; 99285

== ENCOUNTER → 2024-05-15 13:17 | Outpatient (REF) | payer MEDICARE, OTHER, SELFPAY | LOC: HWRAD 13:17 | PROVIDERS: ATTENDING PHYSICIAN Nurse Practitioner Adult Health | DX: M25.512 Pain in left shoulder (principal) | CPT/HCPCS: 73030 ==

== ENCOUNTER → 2024-08-03 11:35 | Outpatient (REF) | payer MEDICARE, OTHER, SELFPAY | LOC: HWRAD 11:35 | PROVIDERS: ATTENDING PHYSICIAN Nurse Practitioner Adult Health | DX: M79.645 Pain in left finger(s) (principal) | CPT/HCPCS: 73140 ==

== ENCOUNTER → 2024-09-06 10:44 | Outpatient (REF) | payer MEDICARE, OTHER, SELFPAY | LOC: HWRAD 10:44 | PROVIDERS: ATTENDING PHYSICIAN Nurse Practitioner Adult Health; FAMILY PHYSICIAN Nurse Practitioner Adult Health | DX: Z87.891 Personal history of nicotine dependence (principal) | CPT/HCPCS: 71271 ==

== ENCOUNTER → 2024-11-08 15:17 | Outpatient (REF) | payer MEDICARE, OTHER, SELFPAY | LOC: HWRAD 15:17 | DX: J18.9 Pneumonia, unspecified organism (principal) | CPT/HCPCS: 71046 ==

== ENCOUNTER → 2025-03-01 09:24 | Outpatient (REF) | payer MEDICARE, OTHER, SELFPAY | LOC: HWRAD 09:24 | PROVIDERS: ATTENDING PHYSICIAN Nurse Practitioner Adult Health | DX: M54.32 Sciatica, left side (principal); R29.898 Other symptoms and signs involving the musculoskeletal system; R20.0 Anesthesia of skin | CPT/HCPCS: 72110 ==

== ENCOUNTER → 2025-04-08 13:52 | Outpatient (REF) | payer MEDICARE, OTHER, SELFPAY | LOC: MRI 13:52 | PROVIDERS: ATTENDING PHYSICIAN Nurse Practitioner Adult Health | DX: R20.0 Anesthesia of skin (principal); R29.898 Other symptoms and signs involving the musculoskeletal system; M54.32 Sciatica, left side | CPT/HCPCS: 72148 ==

== ENCOUNTER → 2025-09-03 07:03 | Outpatient (REF) | payer MEDICARE, OTHER, SELFPAY | LOC: PAVMRI 07:03 | PROVIDERS: ATTENDING PHYSICIAN Nurse Practitioner Adult Health | DX: R42 Dizziness and giddiness (principal); R25.1 Tremor, unspecified | CPT/HCPCS: 70553; A9575 ==